=== PATIENT | female | born 1945 | race Caucasian/White ===

== ENCOUNTER 2016-09-08 05:23 | Inpatient (IN) | payer OTHER ==
[2016-07-21 11:09] VITALS: BMI 40.0
[2016-08-26 13:46] VITALS: BMI 40.0
[~2016-09-08] VITALS: Ht 172.7 cm; Wt 119.1 kg
[2016-09-08] VITALS (8 sets, daily range): BP systolic 146–176; BP diastolic 69–92; PULSE 84–102; TEMP 36.2–37; O2SAT 95–98; Ht 172.7 cm; Wt 119.1 kg
[~2016-09-08 05:23] MED LIST: ALBINS/ INH; ALBU18002 INH; ALPR-411 PO; BISA-16 PO; CLINDAMYCIN 600 MG/54 ML D5W IV SCH; DIAZ10TA PO; EZET10TA63 PO; GLC/500 PO; IBUP-1105 PO; LACTATED RINGER'S 1000ML 1,000 ML IV SCH; LACTATED RINGER'S 1000ML 500 ML IV ONE; LOSA100T2 PO; OXYC1TAB3 PO; PATIENT'S ALLERGY INFO NEEDS ENTERED SCH; PREGABALIN 75 MG CAP PO SCH
[2016-09-08] MEDS ORDERED: PREGABALIN 75 MG CAP PO SCH (06:00)
[2016-09-08] MEDS ORDERED: CLINDAMYCIN PHOS 150 MG/ML 2 ML VIAL IV SCH (06:00)
[2016-09-08] MEDS ORDERED: CLINDAMYCIN 600 MG/54 ML D5W IV SCH (06:00)
[2016-09-08] MEDS ORDERED: LACTATED RINGER'S 1000ML 500 ML IV ONE (06:00)
[2016-09-08] MEDS ORDERED: LACTATED RINGER'S 1000ML 1,000 ML IV SCH (06:00)
[2016-09-08] MEDS ORDERED: MIDAZOLAM HCL 1 MG/ML 2ML VIAL ONE (06:46)
[2016-09-08] MEDS ORDERED: FENTANYL CITRATE INJ 50 MCG/1 ML 2 ML VIAL ONE ×4 (06:46→09:49)
[2016-09-08] MEDS ORDERED: HEPARIN SOD (PORCINE) 1000 UNIT/ML 10 ML VIAL ONE (06:51)
[2016-09-08] MEDS ORDERED: BUPIVACAINE/EPINEPHRINE 0.5% MPF 1:200,000 30 ML VIAL ONE (06:51)
[2016-09-08] MEDS ORDERED: THROMBIN 5000 UNITS KIT ONE (06:51)
[2016-09-08] MEDS ORDERED: THROMBIN FOR SOLN 20000 UNIT KIT ONE ×2 (06:51→06:54)
[2016-09-08] MEDS ORDERED: BACITRACIN 50000 UNIT VIAL ONE (06:52)
--- NOTE | 2016-09-08 07:23 | History and Physical ---
History & Physical Date Sep 08, 2016. Chief Complaint LBP bilateral leg pain, R >L History of Present Illness The patient is a 71 year old female with complaints of above who failed to improve with outpatient management. Her symptoms prevent significant walking. denies numbness or weakness. marked neurogenic claudication. positive shopping cart sign. no incontinence. Past Medical/Surgical History hyster marv breast lumpectomy asthma HTN hi chol OA DM type II nephrolithiasis Allergies Coded Allergies: Phenytoin (Verified Allergy, Mild, PAIN IN HEAD AND VOMITTING, 09/08/16) Penicillins (Verified Allergy, Unknown, CANT REMEMBER, 09/08/16) CAN TAKE AMPICILLIN JUST DOES NOT TAKE PENICILLINS Uncoded Allergies: OPIATES (Allergy, Mild, ITCHY WITH GENERIC OPIATES, 07/21/16) Home Medications Scheduled Bisacodyl (Dulcolax), 2 TAB PO UD Ezetimibe (Zetia), 10 MG PO QPM Ibuprofen (Ibuprofen), 2-3 TAB PO QID Losartan Potassium & Hydrochlo (Hyzaar), 1 TAB PO QAM Metformin Hcl (Glucophage), 500 MG PO BID Scheduled PRN Albuterol Sulf (Proventil 0.083% 2.5MG/3ML), 2.5 MG INH QID PRN for Shortness of Breath Albuterol Sulfate (Proair Respiclick), 1 PUFF INH QID PRN for Shortness of Breath Alprazolam (Xanax), 0.5 MG PO Q6H PRN for ANXIETY Diazepam (Valium), 10 MG PO DAILY PRN for Anxiety Oxycodone Ir (Roxicodone Ir), 5 MG PO Q6H PRN for Pain Physical Examination Skin: warm/dry Eyes: normal inspection, sclerae normal ENT: normal ENT inspection Head: normocephalic, atraumatic Neck: supple, trachea midline Respiratory/Chest: lungs clear, no respiratory distress Cardiovascular: regular rate, rhythm Back: normal inspection Extremities: normal inspection, normal range of motion Neurologic/Psych: no motor/sensory deficits, alert, normal reflexes, oriented x 3 Diagnosis L2-5 spinal stenosis, degenerative scoliosis Plan of Treatment L2-5 decompression/fusion
[2016-09-08] MEDS ORDERED: HYDROmorphone INJ 2 MG/ML SYR/VIAL ONE (08:10)
[2016-09-08] MEDS ORDERED: EpHEDrine SULFATE 50MG/5ML SYR ONE (08:27)
[2016-09-08] MEDS ORDERED: PHENYLEPHRINE 100MCG/ML 5ML SYR ONE (08:27)
[2016-09-08] MEDS ORDERED: DEXAMETHASONE SOD INJ 4 MG/ML VIAL ONE (08:27)
[2016-09-08] MEDS ORDERED: PROPOFOL IV EMULSION 10 MG/ML 20 ML VIAL IV ONE (08:27)
[2016-09-08] MEDS ORDERED: NEOSTIGMINE METHYLSULFATE 1 MG/ML 10ML VIAL ONE (08:27)
[2016-09-08] MEDS ORDERED: ONDANSETRON INJ 2 MG/ML 2 ML VIAL ONE (08:27)
[2016-09-08] MEDS ORDERED: ROCURONIUM BROMIDE 10 MG/ML 5 ML VIAL ONE (08:27)
[2016-09-08] MEDS ORDERED: GLYCOPYRROLATE INJ 0.2 MG/ML VIAL ONE (08:27)
[2016-09-08] MEDS ORDERED: LIDOCAINE HCL 2% 2 ML VIAL (20MG/ML) ONE (08:27)
[2016-09-08] MEDS ORDERED: FENTANYL CITRATE INJ 50 MCG/1 ML 2 ML VIAL IV PRN (08:30)
[2016-09-08] MEDS ORDERED: EpHEDrine SULFATE INJ 50 MG/ML AMP IV PRN (08:30)
[2016-09-08] MEDS ORDERED: ATROPINE SULFATE 0.1 MG/ML 5ML SYR IV PRN (08:30)
[2016-09-08] MEDS ORDERED: HYDROmorphone INJ 1 MG/ML SYR IV PRN (08:30)
[2016-09-08] MEDS ORDERED: ONDANSETRON INJ 2 MG/ML 2 ML VIAL IV PRN ×2 (08:30→09:45)
[2016-09-08] MEDS ORDERED: SODIUM CHLORIDE 0.9% 1000ML 1,000 ML IV SCH (09:31)
--- NOTE | 2016-09-08 09:31 | [facility] Post Operative Brief Note ---
Immediate Operative Summary Operative Date Sep 08, 2016. Pre-Operative Diagnosis L2-5 spinal stenosis, degenerative scoliosis Post-Operative Diagnosis L2-5 spinal stenosis, degenerative scoliosis Procedure(s) Performed L2-L5 Decompression and Instrumented Fusion; Interbody Fusion at L4-L5; with Arteriocyte Surgeon Dr. Phuc Garrett Certified Social Workers In [employer] Care Surgeon(s) David Rowland PA-C Estimated Blood Loss 450mL Findings dict Specimens None per surgeon
[2016-09-08] MEDS ORDERED: OXYC1TAB3 PO (09:38)
--- NOTE | 2016-09-08 09:40 | Discharge Instructions ---
Discharge Instructions Admission Reason for Admission: Lumbar Spinal Stenosis Discharge Discharge Diagnosis / Problem: Lumbar Stenosis Discharge Goals Goal(s): Decrease discomfort, Improve function, Increase independence Activity Recommendations Activity Limitations: as noted below Lifting Limitations: no more than 5 pounds Exercise/Sports Limitations: until after follow-up appointment May Resume Sexual Activity: after follow-up appointment Shower/Bathe: may shower/bathe in 3 days . Instructions / Follow-Up Instructions / Follow-Up ACTIVITY RECOMMENDATIONS: SELF CARE INSTRUCTIONS AFTER THORACIC/LUMBAR FUSIONS 1. You may walk to your tolerance. It is good exercise for your legs and back. Expect some back and intermittent leg aches and pains. 2. You may perform "counter-top" level activities (make a sandwich, pawan with a project, etc.). 3. No bending or lifting of more than 10 pounds or back twisting of any nature (roll like a log when turning in bed). 4. You may ride in a car for 20-30 minutes at a time. No driving until after your first visit with your doctor. 5. Frequent changes of position and restricting sitting to 30 minutes at a time will help limit the amount of back spasms and stiffness you may experience. 6. You may discontinue the use of ambulatory aids (cane, crutches, etc.) once your strength and confidence allow. 7. You may transportation logistics internship the shower and let water strike your incision when you arrive home at least once daily. Do not take a tub bath, sit in a hot tub or go into a swimming pool until after your first recheck in the office. SPECIAL CARE INSTRUCTIONS: VERY IMPORTANT TO READ AND REVIEW A. Your surgical incision has been closed with a cosmetic suture under the skin that will dissolve in about 6 weeks. In 14 days, you can use a pair of clean scissors and cut the suture that is left outside of the skin at the ends of your incision. 1. The small skin tapes can be removed 7 days after surgery if they have not fallen off by that point. 2. You may keep the wound open to air as much as possible to promote healing after post-op day number 5 unless told otherwise by your doctor. 3. If you think the wound looks like it is becoming infected (redness or worsening drainage) and/or you are experiencing fever, chill or worsening back pain and muscle spasms, contact the office so that we may evaluate you as soon as possible. B. Complications are uncommon, but please contact us if you have any signs or symptoms of: 1. wound infection (fever higher than 102.5 degrees F, redness, separation of wound, drainage, or increasing pain from the incision) 2. blood clots in legs (pain, swelling, redness and warmth in legs) 3. urinary tract infection (fever higher than 102.5 degrees F, burning upon urination or increased frequency of urination) 4. nerve problems (inability to walk on your toes or heels, numbness, loss of bowel or bladder control) 5. any other symptoms that concern you C. Please call the office at if you have any concerns or questions about your operation or recovery. D. No smoking! Smoking drastically decreases the chance of a solid fusion. E. Do not take any anti-inflammatory medications (Indocin, Advil, Motrin, Aspirin, Naprosyn, etc.) as these may inhibit the chance of a solid fusion. Tylenol is okay to take for pain. MANAGING PAIN AFTER SPINAL SURGERY 1. Narcotic medication is intended for short-term use and will be provided for surgical pain. Surgical pain usually lasts for a period of 4-6 weeks. Narcotic medication includes Percocet, Vicodin, Darvocet, Tylenol #3 or Lortab. 2. Longer-term pain is more appropriately treated with non-narcotic medication such as Tylenol ES. 3. Muscle spasm is not appropriately treated with narcotics. Muscle relaxers such as Soma, Flexeril or Skelaxin can be used along with Tylenol ES. 4. Remember that we all live with some "aches and pains". This is not unusual or uncommon after an injury or as we get older. a. Back pain is expected and may include muscle spasms for 4 to 6 weeks after surgery. The pain should gradually improve. If the pain worsens for no apparent reason, please contact the office. b. Intermittent leg pain may also be experienced and should not be concerned about unless it worsens for no apparent reason. If so, please contact the office. 5. We will provide appropriate medication within the normal guidelines of their prescribed use. We will also be very cautious and aware of potential abuse and extended duration of patients' medication needs. a. Pain medications are for your comfort and to assist with sleep and rest so that the tissue can heal. They are not provided in order to return to normal activity and should not be used through the day. To do so or worsening pain at night can result from ongoing tissue damage and development of tolerance to the prescribed medicine. 6. Please allow 2-3 days to process refills. Prescriptions will not be mailed but must be picked up at the office. FOLLOW UP VISIT: Keep your scheduled follow-up appointment. Any questions, please call the office at . Current Hospital Diet Patient's current hospital diet: Diabetes Type 2 Diet Discharge Diet Recommended Diet: Regular Diet Procedures Procedures Performed: L2-L5 Decompression and Instrumented Fusion; Interbody Fusion at L4-L5; with Arteriocyte Pending Studies Studies pending at discharge: no Medical Emergencies . Who to Call and When: Medical Emergencies: If at any time you feel your situation is an emergency, please call 911 immediately. . Non-Emergent Contact Non-Emergency issues call your: Surgeon Call Non-Emergent contact if: temperature is above 101, your pain is worsening , wound has increased drainage, wound has increased redness, wound has increased pain, you have any medication questions . "Provider Documentation" section prepared by David Rowland. VTE Core Measure Inpt VTE Proph given/why not?: Wilber Viera
--- NOTE | 2016-09-08 09:42 | DIAGNOSTIC IMAGING REPORT ---
INTRAOPERATIVE RADIOGRAPHS CLINICAL HISTORY: L2-L5 spinal fusion. Fluoroscopy time: 9 seconds. FINDINGS: 4 spot fluoroscopic views of lumbar spine are presented. There is evidence of discectomy at L4-L5 with laminectomy and posterior fusion from L2 -L5. Interpedicular screws are present at all levels. The orthopedic hardware appears intact. IMPRESSION: Intraoperative images from L2 -L5 spinal fusion as above. Electronically signed by: Mike Cummings M.D. 09/08/2016 9:41 AM Dictated Date/Time: 09/08/2016 9:37 AM
[2016-09-08] MEDS ORDERED: MAGNESIUM HYDROXIDE SUSP 30 ML UDC PO PRN (09:45)
[2016-09-08] MEDS ORDERED: ALBUTEROL HFA 8 GM INHALER INH PRN (09:45)
[2016-09-08] MEDS ORDERED: SOD PHOSPHATE/SOD BIPHOSPHATE ENEMA 132 ML BTL PR PRN (09:45)
[2016-09-08] MEDS ORDERED: ACETAMINOPHEN IV 100 ML IV PRN (09:45)
[2016-09-08] MEDS ORDERED: METOCLOPRAMIDE HCL INJ 5 MG/ML 2 ML VIAL IV PRN (09:45)
[2016-09-08] MEDS ORDERED: PROMETHAZINE HCL INJ 12.5 MG in SODIUM CHLORIDE 0.9% 50ML 50 ML IV PRN (09:45)
[2016-09-08] MEDS ORDERED: NALOXONE HCL 0.4 MG/1 ML VIAL/CARP IV PRN ×2 (09:45)
[2016-09-08] MEDS ORDERED: DIAZEPAM 5MG TAB PO PRN (09:45)
[2016-09-08] MEDS ORDERED: hydrOXYzine HCL 25 MG TAB PO PRN (09:45)
[2016-09-08] MEDS ORDERED: ALUMINUM/MAGNESIUM SUSP 30 ML UDC PO PRN (09:45)
[2016-09-08] MEDS ORDERED: BISACODYL 10 MG SUPP PR PRN (09:45)
[2016-09-08] MEDS ORDERED: ALPRAZOLAM 0.5 MG TAB PO PRN (09:45)
[2016-09-08] MEDS ORDERED: ALBUTEROL 0.083% NEBU SOLN 3 ML VIAL INH PRN (09:45)
[2016-09-08] MEDS ORDERED: FAMOTIDINE 20 MG TAB PO PRN (09:45)
[2016-09-08] MEDS ORDERED: MoRPHine SULFATE 1 MG/ML 50 ML PCA CASS ONE (09:50)
--- NOTE | 2016-09-08 11:20 | Anesthesiology Progress Note ---
Anesthesia Post Op Note Date & Time Sep 08, 2016 at 11:21 Vital Signs Pain Intensity: 3 Vital Signs Past 12 Hours Date Time Temp Pulse Resp B/P Pulse Ox O2 Delivery O2 Flow Rate FiO2 09/08/16 11:00 85 16 161/80 95 Nasal Cannula 4 09/08/16 10:50 36.4 108 16 163/85 95 Nasal Cannula 4 09/08/16 10:40 108 14 192/96 95 Nasal Cannula 4 09/08/16 10:30 86 12 206/96 95 Nasal Cannula 4 09/08/16 10:20 78 14 149/83 96 Mask 5 09/08/16 10:10 74 14 142/77 100 Mask 5 09/08/16 10:00 89 14 175/93 100 Mask 10 09/08/16 09:55 94 16 185/87 98 Mask 10 09/08/16 09:50 92 14 160/76 100 Mask 10 09/08/16 09:48 36.2 98 14 154/71 98 Mask 10 09/08/16 06:32 36.4 84 20 176/85 95 Room Air Notes Mental Status: alert / awake / arousable, participated in evaluation Pt Amnestic to Procedure: Yes Nausea / Vomiting: adequately controlled Pain: adequately controlled Airway Patency, RR, SpO2: stable & adequate BP & HR: stable & adequate Hydration State: stable & adequate Anesthetic Complications: no major complications apparent
[2016-09-08] MEDS ORDERED: KETOROLAC TROMETHAMINE 30 MG/ML VIAL ONE (11:22)
[2016-09-08] MEDS ORDERED: ESMOLOL HCL 10 MG/ML 10 ML VIAL ONE (11:22)
--- NOTE | 2016-09-08 12:33 | OPERATIVE REPORT ---
DATE OF OPERATION: 09/08/2016 PREOPERATIVE DIAGNOSES: 1. L2-L3, L3-L4, and L4-L5 facet arthrosis. 2. L2-L3, L3-L4, and L4-L5 disc degeneration. 3. L3-L4 and L4-L5 spinal stenosis. 4. Degenerative scoliosis. POSTOPERATIVE DIAGNOSES: Same. PROCEDURES: 1. L3 and L4 laminectomies with bilateral medial facetectomies. 2. Segmental pedicle screw instrumentation -- bilateral L2, L3, L4 and L5 with K2M [place] pedicle screws. 3. Posterolateral fusion L2-L5 -- bilateral with Infuse BMP on a collagen sponge, tricalcium phosphate, local bone, bone putty, bone marrow aspirate. 4. Left L4-L5 transforaminal lumbar interbody fusion with K2M titanium mesh interbody cage, bone putty, bone marrow aspirate, and local bone. 5. Right iliac crest bone marrow aspiration and stem cell concentration application of bone graft. SURGEON: Dr. Garrett. DORR OPERATOR: David Rowland PA-C. Please note he participated in all portions of the procedure and was critical for performance of procedure, participated in positioning, prepping, draping, retraction and wound closure. ANESTHESIA: General endotracheal anesthesia. COMPLICATIONS: None. ESTIMATED BLOOD LOSS: 400 mL. OPERATION AND FINDINGS: PROCEDURE: After identification of patient and operative level, she was brought to the OR where she underwent induction of general anesthesia. She was then positioned prone on Marc OR table with all bony prominences well padded. Care was taken to avoid pressure on the periorbital area. Lumbosacral area was sterilely prepped and draped in usual fashion. Antibiotics were administered. Time-out was performed. Level was confirmed and skin incision was infiltrated with Marcaine. I made skin incision from spinous process of L2-L5, exposed the posterior elements, after the transverse processes from L2-L5 bilaterally and placed Gelpi retractors. I confirmed level with fluoroscopy and then marked the operative levels and performed a midline decompression with laminectomies of L3 and L4. The facets were markedly hypertrophied and degenerated and I removed the medial facets with osteotome at L3-L4 and L4-L5 bilaterally. I completed decompression with Kerrisons, palpated the nerve roots were decompressed from L3-L5 bilaterally. I then placed pedicle screws bilaterally at L2, L3, L4, L5 and S1 with K2M [place] pedicle screws. I checked position with fluoroscopy. I then aspirated bone marrow from the right iliac crest and concentrated with stem cell concentration system. I applied this to bone graft traveler changer. I then mobilized the left L5 nerve root, performed a complete discectomy on the left at L4-5 and prepared the disc space with aydee and curettes. I determined graft size with trial sizers, filled a titanium mesh cage with bone putty, bone marrow aspirate and local bone tamped into position and this restored disc height. I lowered the Rajinder frame and applied rods and end caps final tightening. I applied a crosslink and final tightened. I irrigated with bacitracin solution and then decorticated the transverse process from L2-L5 bilaterally with a high speed bur. The facets were also decorticated with a jamal. I then packed the lateral gutters with bone graft mixture from L2 to L5 bilaterally. I then closed in layered fashion over MARIAN drain. All sponge and needle counts were correct at the end of the case. I attest to the content of the Intraoperative Record and any orders documented therein. Any exceptions are noted below. JAZZ
[2016-09-08] MEDS ORDERED: GLUCAGON FOR INJ 1 MG VIAL SQ PRN (12:45)
[2016-09-08] MEDS ORDERED: DEXTROSE 50% 50 ML SYR IV PRN (12:45)
[2016-09-08] MEDS ORDERED: GLUCOSE 10 TABS/TUBE PO PRN (12:45)
[2016-09-08] MEDS ORDERED: GLUCOSE 40% GEL 15 GM TUBE PO PRN (12:45)
[2016-09-08] MEDS ORDERED: HydrALAZINE HCL 20 MG/ML VIAL IV. PRN (12:45)
[2016-09-08] MEDS: SODIUM CHLORIDE 0.9% 1000ML 1,000 ML IV SCH ×2 (12:48→23:42)
--- NOTE | 2016-09-08 12:50 | Medical Consult ---
Consultation Date of Consultation: Sep 08, 2016. Attending Physician: Phuc Garrett M.D. Reason for Consultation: Medical management History of Present Illness This is a 71 y/o female with a history of DM II, HTN, HLD, asthma, and anxiety who presents s/p L2-L5 decompression and fusion with Dr. Garrett on 09/08 for medical management. The patient is rather lethargic and somewhat loopy. She complains largely of her back aching and of nausea. Per nursing, the patient did have a small amount of emesis, about 5-10 cc. Patient has not eaten, passed gas or had a bowel movement yet. Robles catheter is in place draining clear urine. The patient denies fevers, chills, sweats, chest pain, palpitations, claudication, cough, wheezing, shortness of breath, abdominal pain , dysuria, hematuria, urinary retention, paralysis, weakness, numbness and tingling. Past Medical/Surgical History DM II HTN HLD Asthma Anxiety with panic attacks Family History Hypertension Myocardial infarction Social History Smoking Status: Former Smoker Smokeless Tobacco Use: No Alcohol Use: none Drug Use: none Marital Status: Housing Status: lives alone Occupation Status: retired Allergies Coded Allergies: Phenytoin (Verified Allergy, Mild, PAIN IN HEAD AND VOMITTING, 09/08/16) Penicillins (Verified Allergy, Unknown, CANT REMEMBER, 09/08/16) CAN TAKE AMPICILLIN JUST DOES NOT TAKE PENICILLINS Uncoded Allergies: OPIATES (Allergy, Mild, ITCHY WITH GENERIC OPIATES, 07/21/16) Current Inpatient Medications Current Inpatient Medications Medications (Trade) Dose Ordered Sig/Amaris Route Start Time Stop Time Status Last Admin Dose Admin Lactated Ringer's (Lr 1000ml) 1,000 ml @ 15 mls/hr Q24H IV 09/08/16 06:00 09/09/16 05:59 Pregabalin 75 mg 75 mg PREOP PO 09/08/16 06:00 09/08/16 18:00 09/08/16 06:58 75 MG Clindamycin Phosphate (Cleocin 600mg/ 54ml D5W) 54 ml @ 100 mls/hr PREOP IV 09/08/16 06:00 09/08/16 18:00 09/08/16 07:28 100 MLS/HR Fentanyl Citrate (Fentanyl Inj) 50 mcg Q5M PRN IV 2/28/17 08:30 09/08/16 13:30 Hydromorphone HCl (Dilaudid Inj) 0.5 mg Q5M PRN IV 09/08/16 08:30 09/08/16 13:30 Ephedrine Sulfate (EpHEDrine SULFATE INJ) 5 mg Q5M PRN IV 09/08/16 08:30 09/08/16 13:30 Atropine Sulfate (Atropine Sulfate 0.1MG/Ml Inj) 0.5 mg Q1M PRN IV 09/08/16 08:30 09/08/16 13:30 Albuterol Sulfate (Ventolin 0.083% 2.5MG/3ML Neb) 2.5 mg QID PRN INH 09/08/16 09:45 10/08/16 09:44 Alprazolam (Xanax Tab) 0.5 mg Q6H PRN PO 09/08/16 09:45 10/08/16 09:44 Diazepam (Valium Tab) 10 mg DAILY PRN PO 09/08/16 09:45 10/08/16 09:44 EZETIMIBE (Zetia Tab) 10 mg QPM PO 09/08/16 21:00 10/08/16 20:59 Albuterol 1 puffs 1 puffs QID PRN INH 09/08/16 09:45 10/08/16 09:44 Clindamycin Phosphate/Dextrose (Cleocin Iv/ Dextrose Add-Osage 50ML) 54 ml @ 100 mls/hr Q8@0000,0800,1600 IV 09/08/16 16:00 09/09/16 00:33 Heparin Sodium (Porcine) 5000 unit 5,000 unit Q12 SQ 09/09/16 09:00 10/09/16 08:59 Promethazine HCl/ Sodium Chloride (Phenergan Inj/ Nss 50ml) 50.5 ml @ 202 mls/hr Q6H PRN IV 09/08/16 09:45 10/08/16 09:44 Ondansetron HCl (Zofran Inj) 4 mg Q6H PRN IV 09/08/16 09:45 10/08/16 09:44 Metoclopramide HCl 10 mg 10 mg Q6H PRN IV 09/08/16 09:45 10/08/16 09:44 Sodium Chloride (Nss 1000ml) 1,000 ml @ 75 mls/hr [id number] IV 09/08/16 12:20 10/08/16 12:19 Polyethylene (Miralax Powder Packet) 17 gm Q6 PO 09/10/16 06:00 10/10/16 05:59 Bisacodyl (Dulcolax Supp) 10 mg DAILY PRN ND 09/08/16 09:45 10/08/16 09:44 Magnesium Hydroxide (Milk Of Magnesia Susp) 30 ml DAILY PRN PO 09/08/16 09:45 10/08/16 09:44 Hydromorphone HCl (Dilaudid Inj) 0.5-1mg prn moder... Q3H PRN IV 09/09/16 06:00 09/23/16 05:59 Oxycodone HCl 5-10mg prn moderate to sev... Q4H PRN PO 09/09/16 06:00 09/23/16 05:59 Acetaminophen (Ofirmev Iv) 100 ml @ 400 mls/hr Q8H PRN IV 09/08/16 09:45 10/08/16 09:44 Naloxone HCl (Narcan Inj) 0.1 mg Q5M PRN IV 09/08/16 09:45 10/08/16 09:44 Senna/Docusate Sodium (Senokot S Tab) 2 tab HS PO 09/08/16 21:00 10/08/16 20:59 Sodium Biphosphate/ Sodium Phosphate (Fleet Enema) 132 ml ONE PRN ND 09/08/16 09:45 10/08/16 09:44 Hydroxyzine HCl (Vistaril Tab) 25 mg Q8H PRN PO 09/08/16 09:45 10/08/16 09:44 Al Hydroxide/Mg Hydroxide (Maalox Susp) 30 ml Q6H PRN PO 09/08/16 09:45 10/08/16 09:44 Famotidine (Pepcid Tab) 20 mg Q12 PRN PO 09/08/16 09:45 10/08/16 09:44 Diphenhydramine HCl (Benadryl Cap) 25 mg Q6H PRN PO 09/08/16 09:45 10/08/16 09:44 Miscellaneous Information (Discontinue EDGER RUNNER) 1 ea 0600 N/A 09/09/16 06:00 09/09/16 06:01 Naloxone HCl (Narcan Inj) 0.1 mg Q5M PRN IV 09/08/16 09:45 09/09/16 06:00 Morphine Sulfate 50 mg 50 mg PRN PRN IV 09/08/16 09:45 09/09/16 06:00 Sodium Chloride (Nss 1000ml) 1,000 ml @ 15 mls/hr Q24H IV 09/08/16 09:31 09/09/16 06:00 HCTZ/Losartan Potassium (Hyzaar 50-12.5 Tab) 1 tab QAM PO 09/09/16 09:00 10/09/16 08:59 Review of Systems See HPI for pertinent positives and negatives. All other systems reviewed and negative. Physical Exam Date Time Temp Pulse Resp B/P Pulse Ox O2 Delivery O2 Flow Rate FiO2 09/08/16 12:10 88 16 146/84 97 Nasal Cannula 2.0 09/08/16 11:38 90 16 159/89 97 Nasal Cannula 2.0 09/08/16 11:10 Nasal Cannula 09/08/16 11:10 36.5 92 12 165/92 96 Nasal Cannula 4.0 09/08/16 11:10 Nasal Cannula 09/08/16 11:00 85 16 161/80 95 Nasal Cannula 4 09/08/16 10:50 36.4 108 16 163/85 95 Nasal Cannula 4 09/08/16 10:40 108 14 192/96 95 Nasal Cannula 4 09/08/16 10:30 86 12 206/96 95 Nasal Cannula 4 09/08/16 10:20 78 14 149/83 96 Mask 5 09/08/16 10:10 74 14 142/77 100 Mask 5 09/08/16 10:00 89 14 175/93 100 Mask 10 09/08/16 09:55 94 16 185/87 98 Mask 10 09/08/16 09:50 92 14 160/76 100 Mask 10 09/08/16 09:48 36.2 98 14 154/71 98 Mask 10 09/08/16 06:32 36.4 84 20 176/85 95 Room Air General Appearance: WD/WN, no apparent distress, + pertinent finding (lethargic ) Head: normocephalic, atraumatic Eyes: normal inspection, PERRL, sclerae normal ENT: normal ENT inspection, hearing grossly normal, pharynx normal Neck: supple, no JVD, trachea midline Respiratory/Chest: lungs clear, normal breath sounds, no respiratory distress Cardiovascular: regular rate, rhythm, no gallop, no murmur Abdomen/GI: normal bowel sounds, non tender, soft, + pertinent finding ( reports palpation worsens nausea) Extremities/Musculoskelatal: normal inspection, no calf tenderness, no pedal edema Neurologic/Psych: oriented x 3, + pertinent finding (drowsy, loopy, speech somewhat slurred but oriented x 3. pt easily irritated.) Skin: normal color, warm/dry, no rash Laboratory Results Last 24 Hours Test 09/08/16 06:29 09/08/16 09:48 09/08/16 12:02 Bedside Glucose 133 mg/dl 169 mg/dl 204 mg/dl Assessment & Plan 71 y/o female with a history of DM II, HTN, HLD, asthma, and anxiety who presents s/p L2-L5 decompression and fusion with Dr. Garrett on 09/08 for medical management. -Pain management, DVT prophylaxis, and PT/OT as per primary team Diabetes mellitus type 2--no HgbA1c in hospital records -Hold metformin -Insulin sliding scale -Check BSGs q ac and qhs -Check HgbA1c HTN--stable -Hold Hyzaar until renal function checked/stable and while on IVF -Cover with hydralazine 10 mg IV q6h prn SBP >180 HLD -Continue Zetia 10 mg PO qd Asthma -Continue albuterol inhaler prn Anxiety -Will D/C Valium for now, pt states she only takes prn when she has panic attacks -Hold Xanax for now due to lethargy, can reassess when more alert/awake Thank you for this consultation. We will continue to follow. Reviewed: Pt Seen/Exam by Me History Physician Snow Groomer Supervision Note: I interviewed and examined the patient. Discussed with JACOBY Brown and agree with findings and plan as documented in the note. Any exceptions or clarifications are listed here: More alert than when seen by JACOBY, pain controlled, minnie po. Vitals reviewed, labs reviewed Obese RRR no mgr CTAB Abd soft obese NT ND Ext no edema -ok to restart BP meds, replace K+ follow glucose with hyperglycemia from steroids Documented By: Gogo Lepe
[2016-09-08 13:11] LABS: BASO % 0.1 %; BASO ABS # 0.01 K/uL (0-0.2); COMPLETE YES; HEMATOCRIT 36.5 % (37-47); IG% 0.6 %; LYMPH % 8.6 %; LYMPH ABS # 0.92 K/uL (1.2-3.4); MEAN CELL VOLUME 86.5 fL (80-100); MEAN CORPUSCULAR HEMOGLOBIN 29.4 pg (25-34); MEAN PLATELET VOLUME 9.4 fL (7.4-10.4); MONO % 1.7 %; PLATELET COUNT 203 K/uL (130-400); RED BLOOD COUNT 4.22 M/uL (4.2-5.4); WHITE BLOOD COUNT 10.69 K/uL (4.8-10.8)
[2016-09-08 13:23] LABS: ESTIMATED AVERAGE GLUCOSE 134 mg/dl; HA1C FLAG Normal (Normal)
[2016-09-08 13:28] LABS: BUN/CREATININE RATIO 15.5 (10-20); CALCIUM 7.7 mg/dl (8.5-10.1); CREATININE 0.73 mg/dl (0.60-1.20); POTASSIUM 3.2 mmol/L (3.5-5.1)
[2016-09-08] MEDS: MoRPHine SULFATE 1 MG/ML 50 ML PCA CASS IV PRN ×2 (15:17→23:00)
[2016-09-08] MEDS: CLINDAMYCIN IV 600 MG in DEXTROSE 5% ADD-VANTAGE 50ML 50 ML IV SCH ×2 (15:50→23:42)
[2016-09-08] MEDS: INSULIN ASPART 100 UNITS/ML 3 ML PEN SC SCH ×2 (18:19→20:59)
[2016-09-08] MEDS ORDERED: POTASSIUM CHLORIDE 20 MEQ TABCR PO STA (18:51)
[2016-09-08] MEDS: LOSARTAN/HCTZ 50-12.5 EA TAB PO SCH (20:59)
[2016-09-08] MEDS: EZETIMIBE 10MG TAB PO SCH (21:00)
[2016-09-08] MEDS: DOCUSATE SODIUM/SENNA 50/8.6MG TAB PO SCH (21:00)
[2016-09-08 21:40] LABS: URINE APPEARANCE TURBID (CLEAR); URINE BILIRUBIN NEG (NEG); URINE COLOR DK YELLOW; URINE EPITHELIAL CELL AUTO >30 /lpf (0-5); URINE NITRITE NEG (NEG); URINE PH 5.5 (4.5-7.5); URINE SPECIFIC GRAVITY 1.043 (1.000-1.030); UROBILINOGEN NEG (NEG)
[2016-09-08 21:44] LABS: MANUAL MICROSCOPIC REQUIRED? NO; REVIEW REQ? NO
[2016-09-09 03:25] VITALS: BP 131/78; PULSE 95; TEMP 36.6; O2SAT 95
[2016-09-09] MEDS ORDERED: DC PCA SCH (06:00)
[2016-09-09] MEDS ORDERED: HYDROmorphone INJ 0.5 MG/0.5 ML SYR IV PRN (06:00)
[2016-09-09 06:07] LABS: COMPLETE YES; HEMATOCRIT 32.7 % (37-47); IG% 0.3 %; LYMPH % 15.1 %; LYMPH ABS # 1.91 K/uL (1.2-3.4); MEAN CELL VOLUME 88.9 fL (80-100); MEAN CORPUSCULAR HEMOGLOBIN 29.6 pg (25-34); MEAN CORPUSCULAR HGB CONC 33.3 g/dl (32-36); MEAN PLATELET VOLUME 9.5 fL (7.4-10.4); MONO % 7.4 %; NEUT % 77.2 %; PLATELET COUNT 216 K/uL (130-400); RED BLOOD COUNT 3.68 M/uL (4.2-5.4); WHITE BLOOD COUNT 12.63 K/uL (4.8-10.8)
[2016-09-09 06:14] LABS: PARTIAL THROMBOPLASTIN RATIO 0.9
--- NOTE | 2016-09-09 06:39 | Orthopedic Progress Note ---
Orthopedic Progress Note Date of Service Sep 09, 2016. Subjective Post OP Day: 1 Reports: complaints (back pain), feeling well, Denies: SOB, calf pain, chest pain, light headedness, nausea / vomiting Additional Notes: Patient is lying in bed, comfortable with well controlled pain. No issues throughout the night. No leg pain or numbness. No medical complaints. She remains post operatively stable. Objective calves soft nontender, N/V intact, capillary refill less than 2 sec., dressing C /D/I, A&O x3, toes mobile, hemovac drainage Date Time Temp Pulse Resp B/P Pulse Ox O2 Delivery O2 Flow Rate FiO2 09/09/16 03:25 36.6 95 16 131/78 95 Room Air 09/08/16 23:30 Room Air 09/08/16 23:02 37.0 102 16 150/69 96 Room Air 09/08/16 15:45 Nasal Cannula 2.0 09/08/16 15:44 36.2 101 16 162/88 97 Nasal Cannula 4.0 09/08/16 14:18 99 16 146/89 97 Nasal Cannula 4.0 09/08/16 13:10 91 14 154/82 98 Nasal Cannula 4.0 09/08/16 12:10 88 16 146/84 97 Nasal Cannula 4.0 09/08/16 11:38 90 16 159/89 97 Nasal Cannula 4.0 09/08/16 11:10 Nasal Cannula 09/08/16 11:10 36.5 92 12 165/92 96 Nasal Cannula 4.0 09/08/16 11:10 Nasal Cannula 09/08/16 11:00 85 16 161/80 95 Nasal Cannula 4 09/08/16 10:50 36.4 108 16 163/85 95 Nasal Cannula 4 09/08/16 10:40 108 14 192/96 95 Nasal Cannula 4 09/08/16 10:30 86 12 206/96 95 Nasal Cannula 4 09/08/16 10:20 78 14 149/83 96 Mask 5 09/08/16 10:10 74 14 142/77 100 Mask 5 09/08/16 10:00 89 14 175/93 100 Mask 10 09/08/16 09:55 94 16 185/87 98 Mask 10 09/08/16 09:50 92 14 160/76 100 Mask 10 09/08/16 09:48 36.2 98 14 154/71 98 Mask 10 Laboratory Results 24 Hours: Test 09/08/16 12:52 09/09/16 05:40 White Blood Count 10.69 K/uL 12.63 K/uL Red Blood Count 4.22 M/uL 3.68 M/uL Hemoglobin 12.4 g/dL 10.9 g/dL Hematocrit 36.5 % 32.7 % Mean Corpuscular Volume 86.5 fL 88.9 fL Mean Corpuscular Hemoglobin 29.4 pg 29.6 pg Mean Corpuscular Hemoglobin Concent 34.0 g/dl 33.3 g/dl Platelet Count 203 K/uL 216 K/uL Mean Platelet Volume 9.4 fL 9.5 fL Neutrophils (%) (Auto) 89.0 % 77.2 % Lymphocytes (%) (Auto) 8.6 % 15.1 % Monocytes (%) (Auto) 1.7 % 7.4 % Eosinophils (%) (Auto) 0.0 % 0.0 % Basophils (%) (Auto) 0.1 % 0.0 % Neutrophils # (Auto) 9.52 K/uL 9.75 K/uL Lymphocytes # (Auto) 0.92 K/uL 1.91 K/uL Monocytes # (Auto) 0.18 K/uL 0.93 K/uL Eosinophils # (Auto) 0.00 K/uL 0.00 K/uL Basophils # (Auto) 0.01 K/uL 0.00 K/uL Assessment & Plan Assessment: S/P lumbar decompression and fusion Plan: D/C ADVERTISING ACCOUNT REPRESENTATIVE, transition to oral medication, begin PT, D/C yanes, DVT/GI prophylactic measures, Photographic Machine Operator consulted, Continue MARIAN, Disposition pending.
[2016-09-09 06:40] LABS: BUN/CREATININE RATIO 13.1 (10-20); CALCIUM 7.8 mg/dl (8.5-10.1); CREATININE 0.69 mg/dl (0.60-1.20); POTASSIUM 3.3 mmol/L (3.5-5.1)
[2016-09-09 07:48] VITALS: BP 141/76; PULSE 78; TEMP 36.4; O2SAT 96
[2016-09-09 07:52] VITALS: O2SAT 96
[2016-09-09] MEDS ORDERED: NURSING VERBAL MED ORDER ONE ×2 (08:00→13:15)
[2016-09-09] MEDS ORDERED: DiphenhydrAMINE 2%/ZINC 0.1% CREAM 28GM TUBE EXT PRN (08:00)
[2016-09-09] MEDS: OXYCODONE HCL IR 5 MG TAB (IMMEDIATE RELEASE) PO PRN ×4 (08:05→19:25)
--- NOTE | 2016-09-09 08:27 | Clinical Documentation Query ---
CLINICAL DOCUMENTATION QUERY The operative record states degenerative scoliosis as one of the patient's diagnoses influencing her clinical picture. Unfortunately [facility] coding department will note code this diagnosis without the clinician stating its' clinical significance. In your clinical opinion is this patient being managed for: ( ) Degenerative scoliosis compounding spinal stenosis & vertebral disc degeneration requiring spinal fusion. ( ) Incidental degenerative scoliosis that did not affect surgical decision making process or complicate the procedure itself. Please clarify and document your clinical opinion in the progress notes and discharge summary. Terms such as "probable", "suspected", "likely", "questionable", "possible", or "still to be ruled out" are acceptable. IF IN AGREEMENT, YOU MUST DOCUMENT ABOVE DIAGNOSTIC STATEMENT IN DAILY PROGRESS NOTES AND DISCHARGE SUMMARY. This document is not part of the patient's record. Thank You, Ashkan Braxton, RN [phone]
[2016-09-09] MEDS: LOSARTAN/HCTZ 50-12.5 EA TAB PO SCH (08:52)
[2016-09-09] MEDS: INSULIN ASPART 100 UNITS/ML 3 ML PEN SC SCH ×4 (08:56→21:00)
[2016-09-09] MEDS ORDERED: POTASSIUM CHLORIDE 20 MEQ TABCR PO ONE (09:00)
[2016-09-09] MEDS ORDERED: LOSARTAN/HCTZ 50-12.5 EA TAB PO SCH ×2 (09:00)
[2016-09-09] MEDS: HEPARIN SOD 5000 UNIT/0.5 ML CARP SQ SCH ×2 (09:02→21:23)
[2016-09-09 11:50] VITALS: BP 160/78; PULSE 72; TEMP 36.8; O2SAT 96
--- NOTE | 2016-09-09 14:09 | Anesthesiology Progress Note ---
Anesthesia Post Op Note Date & Time Sep 09, 2016 at 14:08 Vital Signs Vital Signs Past 12 Hours Date Time Temp Pulse Resp B/P Pulse Ox O2 Delivery O2 Flow Rate FiO2 09/09/16 11:50 36.8 72 16 160/78 96 Room Air 09/09/16 07:52 96 Room Air 09/09/16 07:48 36.4 78 18 141/76 96 Room Air 09/09/16 07:48 Room Air 09/09/16 03:25 36.6 95 16 131/78 95 Room Air Notes Mental Status: alert / awake / arousable, participated in evaluation Pt Amnestic to Procedure: Yes Nausea / Vomiting: adequately controlled Pain: adequately controlled Airway Patency, RR, SpO2: stable & adequate BP & HR: stable & adequate Hydration State: stable & adequate Anesthetic Complications: no major complications apparent
--- NOTE | 2016-09-09 14:15 | Hospitalist Progress Note ---
Hospitalist Progress Note Date of Service Sep 09, 2016. (Lorri Dee ., MUKESHC) Subjective Pt evaluation today including: conversation w/ patient, physical exam, chart review, lab review, conversation w/ architecture consultant Pain: Back pain, better with ice PO Intake: Tolerating PO diet Voiding: no voiding problems Patient reports doing well. She reports some back pain, but after requesting an ice pack she states that the pain feels much better. She reports a mild cough that is sometimes productive. She is now tolerating a PO diet without nausea and vomiting. She reports passing some minimal gas and has not had a bowel movement yet. She did go up to use the bathroom and is urinating without difficulty. The patient denies fevers, chills, sweats, chest pain, palpitations , claudication, wheezing, shortness of breath, nausea, vomiting, abdominal pain , dysuria, hematuria, urinary retention, paralysis, weakness, numbness and tingling. Additional Comments: See HPI for pertinent positives and negatives. All other systems reviewed and negative. (Lorri Dee ., JACOBY-C) Objective Vital Signs Date Time Temp Pulse Resp B/P Pulse Ox O2 Delivery O2 Flow Rate FiO2 09/09/16 11:50 36.8 72 16 160/78 96 Room Air 09/09/16 07:52 96 Room Air 09/09/16 07:48 36.4 78 18 141/76 96 Room Air 09/09/16 07:48 Room Air 09/09/16 03:25 36.6 95 16 131/78 95 Room Air 09/08/16 23:30 Room Air 09/08/16 23:02 37.0 102 16 150/69 96 Room Air 09/08/16 15:45 Nasal Cannula 2.0 09/08/16 15:44 36.2 101 16 162/88 97 Nasal Cannula 4.0 09/08/16 14:18 99 16 146/89 97 Nasal Cannula 4.0 (Lorri Dee ., MUKESHC) Physical Exam General Appearance: WD/WN, no apparent distress, + obese Eyes: normal inspection, PERRL, EOMI ENT: normal ENT inspection, hearing grossly normal, pharynx normal Neck: supple, no JVD, trachea midline Respiratory/Chest: lungs clear, normal breath sounds, no respiratory distress Cardiovascular: regular rate, rhythm, no gallop, no murmur Abdomen: normal bowel sounds, non tender, soft Extremities: non-tender, normal inspection, no pedal edema Neurologic/Psychiatric: alert, normal mood/affect, oriented x 3 Skin: normal color, warm/dry, no rash, + pertinent finding (cheeks are flushed) (Lorri Dee ., LAURIE) Laboratory Results Last 24 Hours Test 09/08/16 16:41 09/08/16 20:58 09/08/16 21:10 09/09/16 05:40 Bedside Glucose 181 mg/dl 174 mg/dl Urine Color DK YELLOW Urine Appearance TURBID Urine pH 5.5 Urine Specific [facility] 1.043 Urine Protein TRACE Urine Glucose (UA) TRACE Urine Ketones NEG Urine Occult Blood 2+ Urine Nitrite NEG Urine Bilirubin NEG Urine Urobilinogen NEG Urine Leukocyte Esterase NEG Urine WBC (Auto) 1-5 /hpf Urine RBC (Auto) 10-30 /hpf Urine Hyaline Casts (Auto) 10-30 /lpf Urine Epithelial Cells (Auto) >30 /lpf Urine Bacteria (Auto) NEG White Blood Count 12.63 K/uL Red Blood Count 3.68 M/uL Hemoglobin 10.9 g/dL Hematocrit 32.7 % Mean Corpuscular Volume 88.9 fL Mean Corpuscular Hemoglobin 29.6 pg Mean Corpuscular Hemoglobin Concent 33.3 g/dl Platelet Count 216 K/uL Mean Platelet Volume 9.5 fL Neutrophils (%) (Auto) 77.2 % Lymphocytes (%) (Auto) 15.1 % Monocytes (%) (Auto) 7.4 % Eosinophils (%) (Auto) 0.0 % Basophils (%) (Auto) 0.0 % Neutrophils # (Auto) 9.75 K/uL Lymphocytes # (Auto) 1.91 K/uL Monocytes # (Auto) 0.93 K/uL Eosinophils # (Auto) 0.00 K/uL Basophils # (Auto) 0.00 K/uL RDW Standard Deviation 47.5 fL RDW Coefficient of Variation 14.5 % Immature Granulocyte % (Auto) 0.3 % Immature Granulocyte # (Auto) 0.04 K/uL Activated Partial Thromboplast Time 24.3 SECONDS Partial Thromboplastin Ratio 0.9 Sodium Level 140 mmol/L Potassium Level 3.3 mmol/L Chloride Level 103 mmol/L Carbon Dioxide Level 28 mmol/L Anion Gap 9.0 mmol/L Blood Urea Nitrogen 9 mg/dl Creatinine 0.69 mg/dl Est Creatinine Clear Calc Drug Dose 98.5 ml/min Estimated GFR () 100.1 Estimated GFR (Non- 86.4 BUN/Creatinine Ratio 13.1 Random Glucose 158 mg/dl Calcium Level 7.8 mg/dl Test 09/09/16 08:03 09/09/16 11:53 Bedside Glucose 147 mg/dl 122 mg/dl (Lorri Dee ., LAURIE) Assessment and Plan 71 y/o female with a history of DM II, HTN, HLD, asthma, and anxiety who presents s/p L2-L5 decompression and fusion with Dr. Garrett on 09/08 for medical management. -Pain management, DVT prophylaxis, and PT/OT as per primary team Diabetes mellitus type 2--no HgbA1c in hospital records -Hold metformin -Insulin sliding scale -Check BSGs q ac and qhs -Checked HgbA1c on 09/08, 6.3 HTN--stable -Renal function stable, can resume Hyzaar 50/12.5 mg PO qd -Cover with hydralazine 10 mg IV q6h prn SBP >180 HLD -Continue Zetia 10 mg PO qd Mild hypokalemia -Potassium 3.3 on 09/09 -Given KCl 40 mEq PO x 1 this am Asthma -Continue albuterol inhaler prn Anxiety -Will D/C Valium for now, pt states she only takes prn when she has panic attacks -Pt alert and oriented, may resume Xanax 0.5 mg PO q6h prn anxiety Thank you for this consultation. We will continue to follow. (Lorri Dee ., LAURIE) Reviewed: Pt Seen/Exam by Me (Gogo Lepe MD) History Physician Crnp Supervision Note: I interviewed and examined the patient. Discussed with JACOBY Dee and agree with findings and plan as documented in the note. Any exceptions or clarifications are listed here: Improving, pain controlled, no BM yet but has a lot of gas Vitals reviewed, labs reviewed morbidly obese RRR no mgr CTAB breathing unlabored Abd obese, +BS, soft, mild TTP across lower abd Ext no edema Cotninue pain control, bowel regimen -continue BP meds, replace K+ Documented By: Gogo Lepe (Gogo Lepe MD)
[2016-09-09 15:01] VITALS: BP 136/76; PULSE 105; TEMP 37.2; O2SAT 96
[2016-09-09] MEDS: DOCUSATE SODIUM/SENNA 50/8.6MG TAB PO SCH (21:19)
[2016-09-09] MEDS: EZETIMIBE 10MG TAB PO SCH (21:20)
[2016-09-09 23:41] VITALS: BP 143/73; PULSE 106; TEMP 37.1; O2SAT 95
[2016-09-10] MEDS ORDERED: NURSING VERBAL MED ORDER ONE ×2 (04:30→08:00)
[2016-09-10] MEDS ORDERED: POLYETHYLENE (MIRALAX) 17 GM PACK PO SCH (06:00)
[2016-09-10 06:23] VITALS: BP 156/82; PULSE 101; TEMP 37.4; O2SAT 94
[2016-09-10] MEDS ORDERED: KETOROLAC TROMETHAMINE 15 MG/ML VIAL IV. SCH (08:00)
[2016-09-10] MEDS: INSULIN ASPART 100 UNITS/ML 3 ML PEN SC SCH ×2 (08:00→11:58)
[2016-09-10] MEDS ORDERED: CYCLOBENZAPRINE HCL 5 MG TAB PO PRN (08:15)
[2016-09-10 08:34] LABS: HEMATOCRIT 33.4 % (37-47); MEAN CELL VOLUME 87.4 fL (80-100); MEAN CORPUSCULAR HEMOGLOBIN 29.3 pg (25-34); MEAN CORPUSCULAR HGB CONC 33.5 g/dl (32-36); MEAN PLATELET VOLUME 9.3 fL (7.4-10.4); PLATELET COUNT 192 K/uL (130-400); RED BLOOD COUNT 3.82 M/uL (4.2-5.4); WHITE BLOOD COUNT 11.65 K/uL (4.8-10.8)
[2016-09-10] MEDS: LOSARTAN/HCTZ 50-12.5 EA TAB PO SCH (08:52)
[2016-09-10] MEDS: HEPARIN SOD 5000 UNIT/0.5 ML CARP SQ SCH (09:01)
[2016-09-10 09:06] LABS: BUN/CREATININE RATIO 17.9 (10-20); CALCIUM 8.4 mg/dl (8.5-10.1); CREATININE 0.58 mg/dl (0.60-1.20); POTASSIUM 3.5 mmol/L (3.5-5.1)
[2016-09-10] MEDS ORDERED: HPRIS5M SQ (11:17)
[2016-09-10] MEDS ORDERED: TRAM-10 PO (11:17)
--- NOTE | 2016-09-10 11:21 | Orthopedic Progress Note ---
Orthopedic Progress Note Date of Service Sep 10, 2016. Subjective Post OP Day: 2 Reports: feeling well, Denies: SOB, calf pain, chest pain, complaints, light headedness, nausea / vomiting, pain controlled w PO medications, using COOKING CASING AND DRYING SUPERVISOR Objective calves soft nontender, N/V intact, dressing C/D/I, A&O x3, hemovac drainage Date Time Temp Pulse Resp B/P Pulse Ox O2 Delivery O2 Flow Rate FiO2 09/10/16 10:49 Room Air 09/10/16 07:45 Room Air 09/10/16 06:23 37.4 101 18 156/82 94 Room Air 09/09/16 23:41 37.1 106 17 143/73 95 Room Air 09/09/16 19:15 Room Air 09/09/16 15:01 37.2 105 16 136/76 96 Room Air 09/09/16 11:50 36.8 72 16 160/78 96 Room Air Laboratory Results 24 Hours: Test 09/10/16 08:24 Hematocrit 33.4 % Hemoglobin 11.2 g/dL Assessment & Plan Assessment: S/P lumbar decompression and fusion Plan: slow to progress, accepted to [facility], continue heparin SC due to hx of being HZ for factor V Leiden, tramadol, continue HVC drain. Discharge Planning Discharge Planning: rehab hospital DVT Prophylaxis: SCDs, other
[2016-09-10 11:29] VITALS: BP 156/82; PULSE 101; TEMP 37.4; O2SAT 94
--- NOTE | 2016-10-06 13:53 | Discharge Summary ---
Orthopedic Discharge Summary Admission Date/Reason Sep 08, 2016 at 07:15 Lumbar Spinal Stenosis. Discharge Date/Disposition Sep 10, 2016 Rehab Diagnosis Principal Diagnosis: lumbar scoliosis, stenosis Procedure(s) Performed L2-5 decompression and fusion Consultations medicine Medication Reconciliation New Medications: Tramadol (Ultram) 50 Mg Tab 50 MG PO Q4H PRN for Pain, #100 TAB Heparin Sod (Porcine) (Heparin Sodium) 5,000 Unit/0.5 Ml Inj 5000 UNIT SQ Q12 for 14 Days Continued Medications: Albuterol Sulf (Proventil 0.083% 2.5MG/3ML) 2.5 Mg/3 Ml Nebu 2.5 MG INH QID PRN for Shortness of Breath, EA Albuterol Sulfate (Proair Respiclick) 108 Mcg/Act Aer 1 PUFF INH QID PRN for Shortness of Breath Alprazolam (Xanax) 0.5 Mg Tab 0.5 MG PO Q6H PRN for ANXIETY, TAB Bisacodyl (Dulcolax) 5 Mg Tab 2 TAB PO UD, TAB Diazepam (Valium) 10 Mg Tab 10 MG PO DAILY PRN for Anxiety, TAB DO NOT DRIVE WITH MEDICATION Ezetimibe (Zetia) 10 Mg Tab 10 MG PO QPM, TAB Losartan Potassium & Hydrochlo (Hyzaar) 1 Tab Tab 1 TAB PO QAM, TAB 3 Refills 50/12.5 Metformin Hcl (Glucophage) 500 Mg Tab 500 MG PO BID, TAB Discontinued Medications: Ibuprofen (Ibuprofen) 200 Mg Tab 2-3 TAB PO QID HELD FOR 3 WEEKS Admission Physical Exam As per Admitting History & Physical. Hospital Course She was admitted for elective surgery and tolerated surgery well. She was slow to progress with PT and was accepted to rehab for placement. She remained hemodynamically stable, was on heparin SC for DVT prophylaxis due to a hx of HZ for factor V Leiden. She had her pain controlled and was on a GI regimen. Discharge Instructions Please refer to the electronic Patient Visit Report (Discharge Instructions) for additional information.
== END 2016-09-10 13:47 | DRG 460 ==
LOC: ENRESERVDT → ENRESERVTM → C.ACU 05:23 → C.3E 07:15
PROVIDERS: ADMIT Orthopaedic Surgery Orthopaedic Surgery of the Spine; ATTEND Orthopaedic Surgery Orthopaedic Surgery of the Spine
PROC: 0SG1071 Fusion of 2 or more Lumbar Vertebral Joints with Autologous Tissue Substitute, Posterior Approach, Posterior Column, Open Approach (ICD-10-PCS; principal; 2016-09-08 07:30)
PROC: 07DR3ZZ Extraction of Iliac Bone Marrow, Percutaneous Approach (ICD-10-PCS; principal; 2016-09-08 07:30)
PROC: 0SG00AJ Fusion of Lumbar Vertebral Joint with Interbody Fusion Device, Posterior Approach, Anterior Column, Open Approach (ICD-10-PCS; principal; 2016-09-08 07:30)
PROC: 3E0U0GB Introduction of Recombinant Bone Morphogenetic Protein into Joints, Open Approach (ICD-10-PCS; principal; 2016-09-08 07:30)
PROC: 0ST20ZZ Resection of Lumbar Vertebral Disc, Open Approach (ICD-10-PCS; principal; 2016-09-08 07:30)
DX: M48.06 Spinal stenosis, lumbar region (principal); D68.51 Activated protein C resistance; M41.9 Scoliosis, unspecified; M51.36 Other intervertebral disc degeneration, lumbar region; M47.816 Spondylosis without myelopathy or radiculopathy, lumbar region; R11.2 Nausea with vomiting, unspecified; E87.6 Hypokalemia; I10 Essential (primary) hypertension; J45.909 Unspecified asthma, uncomplicated; E11.65 Type 2 diabetes mellitus with hyperglycemia; T38.0X5A Adverse effect of glucocorticoids and synthetic analogues, initial encounter; E78.00 Pure hypercholesterolemia, unspecified; E78.5 Hyperlipidemia, unspecified; K21.9 Gastro-esophageal reflux disease without esophagitis; M19.90 Unspecified osteoarthritis, unspecified site; M06.9 Rheumatoid arthritis, unspecified; E55.9 Vitamin D deficiency, unspecified; M79.7 Fibromyalgia; G43.909 Migraine, unspecified, not intractable, without status migrainosus; F41.0 Panic disorder [episodic paroxysmal anxiety]; F32.9 Major depressive disorder, single episode, unspecified; E66.01 Morbid (severe) obesity due to excess calories; Z68.39 Body mass index [BMI] 39.0-39.9, adult; Z87.891 Personal history of nicotine dependence; Z79.84 Long term (current) use of oral hypoglycemic drugs; Z79.1 Long term (current) use of non-steroidal anti-inflammatories (NSAID); Z79.891 Long term (current) use of opiate analgesic; Z79.899 Other long term (current) drug therapy